=== PATIENT | male | born 1960 | race Hispanic/Latino ===

== ENCOUNTER 2020-07-02 07:12 | Inpatient (IN) | payer BC ==
[~2020-07-02] VITALS: Ht 185.4 cm; Wt 111.3 kg
[~2020-07-02 07:12] MED LIST: AMOX-429 PO; DOXYCYCLINE PO; ESOM20CA60 PO; FLUT1BLS IH; LEVO500T90 PO; LORA1TAB3 PO; ONDA4TAB10 PO; TAMS-1 PO
[2020-07-02 07:43] LABS: APPEARANCE,URINE Clear (CLEAR); BILIRUBIN,URINE Negative (NEGATIVE); COLOR,URINE Yellow (YELLOW); GLUCOSE, URINE (UA) Negative (NEGATIVE); KETONES,URINE Negative (NEGATIVE); LEUKOCYTE ESTERASE ,URINE Trace (NEGATIVE); NITRATE,URINE Negative (NEGATIVE); OCCULT BLOOD,URINE Negative (NEGATIVE); PH,URINE 5.5 (5.0-8.0); PROTEIN,URINE Negative (NEGATIVE); UROBILINOGEN,URINE 0.2 mg/dL (0.2-1.0)
[2020-07-02 08:17] LABS: BACTERIA,URINE Few /HPF (None Seen); RBC,URINE None Seen /HPF (0-1); SQUAMOUS EPITHELIAL CELL,UR 0-2 /HPF (0-2); WBC,URINE 0-1 /HPF (0-1)
[2020-07-02 08:26] LABS: BASOPHILS % (AUTO) 0.2 % (0.0-5.0); EOSINOPHILS % (AUTO) 0.3 % (0.0-8.0); HEMATOCRIT 38.9 % (42-54); LYMPHOCYTES % (AUTO) 9.9 % (21.0-51.0); MEAN CORPUSCULAR HEMOGLOBIN 27.7 pg (27.0-33.0); MEAN CORPUSCULAR HGB CONC 32.6 g/dL (32.0-36.0); MEAN CORPUSCULAR VOLUME 84.7 fL (79-99); MONOCYTES % (AUTO) 6.3 % (3.0-13.0); PLATELET COUNT (AUTO) 361 K/uL (130-400); RED BLOOD CELL COUNT(AUTO) 4.59 MIL/uL (4.50-6.20); RED CELL DISTRIBUTION WIDTH 13.4 % (11.0-15.5); WHITE BLOOD COUNT (AUTO) 11.1 K/uL (4.8-10.8)
[2020-07-02] MEDS ORDERED: CEFTRIAXONE 1G VIAL ONE (08:28)
[2020-07-02] MEDS ORDERED: 0.9%NACL 1000ML 1,000 ML IV ONE ×3 (08:29→15:43)
[2020-07-02 08:43] LABS: ALBUMIN 3.3 g/dL (3.5-5.0); CREATININE 1.2 mg/dL (0.5-1.5); POTASSIUM 4.4 mmol/L (3.5-5.1); TOTAL PROTEIN, SERUM 7.7 g/dL (6.0-8.3)
[2020-07-02] MEDS ORDERED: ONDANSETRON 4MG INJ ONE (10:31)
[2020-07-02] MEDS ORDERED: ZOSYN 3.375GM+NS 50ML 50 ML IV ONE ×2 (10:31→18:40)
[2020-07-02] MEDS ORDERED: METRONIDAZOLE 500MG/100ML BAG 100 ML ONE ×2 (10:32→18:40)
[2020-07-02] MEDS ORDERED: MORPHINE 4 MG SYG ONE (10:32)
[2020-07-02] MEDS ORDERED: ACETAMINOPHEN 500 MG TABLET ONE (10:45)
[2020-07-02] MEDS: ZOSYN 3.375GM+NS 50ML 50 ML IV SCH ×2 (11:00→19:00)
[2020-07-02] MEDS ORDERED: COMPOUND IV REFRIGERATED 1 EACH IVSOLN MISC PRN (11:00)
[2020-07-02] MEDS: METRONIDAZOLE 500MG/100ML BAG 100 ML IVPB SCH ×2 (11:00→19:00)
[2020-07-02] MEDS ORDERED: ONDANSETRON 4MG INJ IVP PRN (11:00)
[2020-07-02] MEDS ORDERED: HYDROMORPHONE 0.5 MG SYG (0.5MG/0.5ML) IVP PRN (11:00)
[2020-07-02] MEDS: 0.9%NACL 1000ML 1,000 ML IV SCH ×2 (11:00→21:00)
[2020-07-02] MEDS ORDERED: VANCOMYCIN 1G 1.5 GM in 0.9% NACL 250ML 250 ML IV SCH (11:00)
[2020-07-02] MEDS ORDERED: VANCOMYCIN PROTOCOL PER PHARMACY IV SCH (11:30)
[2020-07-02] MEDS ORDERED: LACTATED RINGERS 1000ML 1,000 ML IV ONE (15:34)
[2020-07-02] MEDS ORDERED: PANTOPRAZOLE 40 MG/VIAL ONE (20:36)
[2020-07-02] MEDS ORDERED: HYDROMORPHONE 0.5 MG SYG (0.5MG/0.5ML) ONE (20:56)
[2020-07-02] MEDS: VANCOMYCIN 1G 1.5 GM in 0.9% NACL 250ML 250 ML IV SCH (21:00)
[2020-07-02] MEDS: FAMOTIDINE 20MG VIAL IV SCH (21:00)
[2020-07-03] VITALS (7 sets, daily range): BP systolic 96–120; BP diastolic 54–67
[2020-07-03] MEDS ORDERED: ESOM20CA60 PO (02:12)
[2020-07-03] MEDS ORDERED: AMOX1TAB16 PO (02:12)
[2020-07-03] MEDS ORDERED: TAMSULOSIN PO (02:12)
[2020-07-03] MEDS ORDERED: FEBU80TA3 PO (02:12)
[2020-07-03] MEDS ORDERED: BUDE10.2 IH (02:12)
[2020-07-03] MEDS ORDERED: LOSA50TA64 PO (02:12)
[2020-07-03] MEDS: METRONIDAZOLE 500MG/100ML BAG 100 ML IVPB SCH ×3 (02:51→18:40)
[2020-07-03] MEDS: ZOSYN 3.375GM+NS 50ML 50 ML IV SCH ×3 (02:51→20:21)
[2020-07-03] MEDS: 0.9%NACL 1000ML 1,000 ML IV SCH (02:51)
[2020-07-03 06:07] LABS: HEMATOCRIT 32.1 % (42-54); MEAN CORPUSCULAR HEMOGLOBIN 27.6 pg (27.0-33.0); MEAN CORPUSCULAR HGB CONC 32.1 g/dL (32.0-36.0); MEAN CORPUSCULAR VOLUME 86.1 fL (79-99); RED BLOOD CELL COUNT(AUTO) 3.73 MIL/uL (4.50-6.20); RED CELL DISTRIBUTION WIDTH 13.5 % (11.0-15.5); WHITE BLOOD COUNT (AUTO) 6.8 K/uL (4.8-10.8)
[2020-07-03 06:42] LABS: ALBUMIN 2.4 g/dL (3.5-5.0); BILIRUBIN,TOTAL 1.1 mg/dL (0.2-1.0); MAGNESIUM 1.4 mg/dL (1.80-2.40); POTASSIUM 3.9 mmol/L (3.5-5.1); TOTAL PROTEIN, SERUM 6.3 g/dL (6.0-8.3)
[2020-07-03] MEDS ORDERED: PANTOPRAZOLE 40 MG TAB DR PO PRN (06:45)
[2020-07-03] MEDS ORDERED: FLUTICASONE/VILANTEROL 1 EACH BLST.W.DEV IH PRN (06:45)
[2020-07-03] MEDS ORDERED: FEBUXOSTAT PO SCH (09:00)
[2020-07-03] MEDS: POLYETHYLENE GLYCOL 3350 17 GM POWD.PACK PO SCH ×2 (10:51→20:20)
[2020-07-03] MEDS: FAMOTIDINE 20MG VIAL IV SCH ×2 (10:52→20:20)
[2020-07-03] MEDS: DOCUSATE SODIUM 100 MG CAP PO SCH ×2 (10:53→20:20)
[2020-07-03] MEDS: VANCOMYCIN 1G 1.5 GM in 0.9% NACL 250ML 250 ML IV SCH (12:35)
[2020-07-03] MEDS ORDERED: MAGNESIUM 4GM PREMIX 100ML 100 ML IV NR (12:45)
[2020-07-03] MEDS ORDERED: TAMSULOSIN HCL 0.4 MG CAP.ER.24H PO SCH (21:00)
== END 2020-07-03 22:00 | disposition home or self-care (01) | DRG 728 ==
LOC: EDH 07:12 → EDHIP 10:18 → 3AH 07-03 00:58
PROVIDERS: ADMIT Family Medicine; ATTEND Family Medicine
DX: N45.3 Epididymo-orchitis (principal); K57.32 Diverticulitis of large intestine without perforation or abscess without bleeding; E11.9 Type 2 diabetes mellitus without complications; E78.5 Hyperlipidemia, unspecified; E83.42 Hypomagnesemia; E87.6 Hypokalemia; I10 Essential (primary) hypertension; N20.0 Calculus of kidney; E66.01 Morbid (severe) obesity due to excess calories; I95.9 Hypotension, unspecified; Z85.46 Personal history of malignant neoplasm of prostate; Z68.32 Body mass index [BMI] 32.0-32.9, adult; Z87.440 Personal history of urinary (tract) infections; Z87.442 Personal history of urinary calculi; Z79.899 Other long term (current) drug therapy; Z79.84 Long term (current) use of oral hypoglycemic drugs
CPT/HCPCS: 36415; 74176; 76870; 80053; 81001; 83605; 83735; 85025; 85027; 87040; C9113; G0378; J0696; J1170; J2270; J2405; J2543; J3370; J3475; J3490; J7030; J7050; J7120

== ENCOUNTER → 2020-12-15 | Outpatient (CLI) | payer BC ==
[~2020-12-15] MED LIST changes: -AMOX-429 PO; +AMOX1TAB16 PO; +BUDE10.2 IH; -DOXYCYCLINE PO; +FEBU80TA3 PO; -FLUT1BLS IH; -LEVO500T90 PO; -LORA1TAB3 PO; -ONDA4TAB10 PO; -TAMS-1 PO; +TAMSULOSIN PO
== END | disposition home or self-care (01) ==
LOC: SHCH 10:02
PROVIDERS: ATTEND Internal Medicine Cardiovascular Disease
DX: R07.9 Chest pain, unspecified (principal)
CPT/HCPCS: 93306; 93356